=== PATIENT | female | born 1970 | race Caucasian/White ===

== ENCOUNTER 2019-10-31 15:15 | Emergency (ER) | payer SELFPAY ==
[~2019-10-31 15:15] MED LIST: AMIODARONE HCL INJ 150 MG/3 ML VIAL IV ONE; CALCIUM GLUCONATE 1000 MG/10 ML INJ IV ONE; EPINEPHRINE INJ 1 MG/10 ML DISP.SYRIN ONE; MAGNESIUM SULFATE PF/INJ 40 MEQ/10 ML SDV ONE; SODIUM BICARBONATE 8.4% INJ 50 MEQ/50 ML DISP.SYRIN ONE
[2019-10-31] MEDS ORDERED: DEXTROSE 50%-WATER 25 GM/50 ML DISP.SYRIN IV ONE (16:05)
[2019-10-31] MEDS ORDERED: NALOXONE HCL INJ 2 MG/2 ML DISP.SYRIN IV ONE (16:05)
--- NOTE | 2019-10-31 16:33 | ER Document Report ---
ED Resuscitation - General Chief Complaint: Unresponsive Stated Complaint: UNRESPONSIVE Primary Care Provider: ISAIAS WEST PA-C [Primary Care Provider] - Follow up as needed Mode of Arrival: Medic Information source: Emergency Med Personnel Cannot obtain history due to: Altered mental status - [facility] Notes: Patient was brought in by paramedics as emergency traffic. The paramedics state they were called out for the patient having altered mental status. They state that they found the patient with a low blood glucose of approximately 20. They state that she had some minimal responsiveness upon their initial arrival. They state they were unable to get a pulse ox throughout the entire trip. They state that just before arrival patient became flaccid and unresponsive. Patient arrives to the room unresponsive and unable to give any history. There is no known recent trauma or fevers. No known recent URI symptoms. Paramedics did states she was tested recently for COVID but this test was negative and it was approximately 2 weeks ago. Patient did recently have a shoulder injury and was taking pain medication for this. After the resuscitation was over I did talk with family who states that patient is only been complaining of shoulder pain. That last night before she went to bed she seemed altered and that she did not talk or interact with them at all today. Past Medical History - General Information source: Relative, Emergency Med Personnel - Social History Smoking Status: Current Every Day Smoker Frequency of alcohol use: None - none known Drug Abuse: None Family History: Reviewed & Not Pertinent Review of Systems - Review of Systems -: Yes ROS unobtainable due to patient's medical condition - Review of symptoms was not obtainable due to patient's altered mental statu Physical Exam - Vital signs Interpretation: Hypotensive, Hypoxic - General General appearance: Unresponsive In distress: Severe - HEENT Head: Normocephalic, Atraumatic Eyes: No: Periorbital ecchymosis, Periorbital edema Pupils: Dilated, Fixed Mouth/Lips: Normal Pharynx: Normal - Respiratory Respiratory status: Agonal respirations, Cyanosis Chest status: No: Chest mass, Ecchymosis Breath sounds: Decreased air movement Chest palpation: Normal - Cardiovascular Rhythm: Other - No heart sounds could be auscultated Murmur: No Pulses: Normal: Carotid - When had perfusing rhythm, Femoral - Emergency department - Abdominal Inspection: Obese Distension: Distended Organomegaly: No organomegaly - Back Back: Normal - Extremities General upper extremity: Other - Patient has bilateral dusky cool upper extremities General lower extremity: Other - Patient has bilateral dusky cool lower extremities. No: Jimmy's sign - Neurological Neuro grossly intact: No Cognition: Confused Orientation: Disoriented to person, Disoriented to place, Disoriented to time, Disoriented to events [place] Coma Scale Eye Opening: None [place] Coma Scale Verbal: None [place] Coma Scale Motor: None [place] Coma Scale Total: 3 - Psychological Associated symptoms: Psychomotor depression, Uncooperative - Skin Skin Temperature: Cool Skin Moisture: Dry Skin Color: Pale, Ashen, Cyanotic Course - Re-evaluation Re-evalutation: 10/31/19 16:45 As patient was being wheeled into the room and ambulance stretcher I noticed that patient was ashen appearing as well as taking shallow agonal respirations. Paramedics stated that this started after they got her out of the ambulance in route to the room. She was immediately transferred to the bed. She had no response to verbal or painful stimuli and continued with agonal shallow respirations. I immediately intubated the patient with a glidedoscope. CPR was initiated. Please see nurse's notes for details of the ACLS code that was performed. Patient did have a perfusing sinus rhythm for approximately 2 to 3 minutes. The rest of the time patient had V. tach, V. fib, asystole or a disorganized non-perfusing rhythm. She never had any responsiveness. She did have some spontaneous respirations. Pupils were fixed and dilated throughout. Patient was defibrillated multiple times. After extensive ACLS code was performed including CPR, intubations, multiple shocks, multiple medications, patient remained with a non-perfusing rhythm. Ultrasound of the heart showed no significant cardiac activity. Therefore the code was terminated. I then personally explained to the daughter and mother that their loved one had . I also discussed the case with the corner and patient was determined to not be a medical office technician case. The primary care doctor has been notified and will sign the certificate. Procedures - Additional Procedures Cardioversion/Defib Time performed: 15:30 Additional Procedures: Cardioversion/defib Notes: 10/31/19 16:49 Patient was defibrillated multiple times throughout the code Discharge - Discharge Clinical Impression: Cardiopulmonary arrest Disposition: Referrals: ISAIAS WEST PA-C [Primary Care Provider] - Follow up as needed
== END 2019-10-31 20:18 | disposition expired ==
LOC: EDBD → ER 15:15
PROC: 0BH17EZ Insertion of Endotracheal Airway into Trachea, Via Natural or Artificial Opening (ICD-10-PCS; principal; 2019-10-31)
DX: I46.9 Cardiac arrest, cause unspecified (principal); R41.82 Altered mental status, unspecified; F17.200 Nicotine dependence, unspecified, uncomplicated
CPT/HCPCS: 99291; 92950; 96374; 96375; 31500; J0610; J3490 ×2; J0171; J3475; J2310; J0282